=== PATIENT | female | born 1980 | race Caucasian/White ===

== ENCOUNTER → 2021-04-19 10:44 | Outpatient (CLI) | payer BC, SELFPAY ==
--- NOTE | ~2021-04-19 | US_ITS ---
EXAMINATION: US transvaginal DATE: 04/19/2021 11:06 INDICATION: Displacement of intrauterine contraceptive device TECHNIQUE: Multiple endovaginal sonographic images of the pelvis were obtained. COMPARISON: None. FINDINGS: The uterus measures 7.4 x 3.4 x 4.1 cm. The endometrial complex measures 5 mm. An IUD is se en in in expected position. The right ovary measures 2.9 x 2.4 x 3.6 cm. The left ovary measures 3.5 x 1.9 x 3.8 cm and contains a a 3.2 cm simple cyst. There is normal vascular flow in the ovaries. The re is no free fluid in the pelvis. IMPRESSION: 1. IUD in expected position. Reviewed, dictated and finalized at location F. [employer]
== END ==
PROVIDERS: Visit Provider Nurse Practitioner
DX: T83.32XA Displacement of intrauterine contraceptive device, initial encounter (principal); N83.202 Unspecified ovarian cyst, left side
CPT/HCPCS: 76830

== ENCOUNTER 2023-09-02 15:02 | Outpatient (CLI) | payer OTHER, SELFPAY ==
--- NOTE | ~2023-09-02 | US_ITS ---
Pelvic ultrasound. Clinical History: Pelvic pain Technique: Realtime transabdominal and transvaginal scanning of the pelvis was performed. Color flow Doppler and Doppler spectral analysis were performed. Findings: The uterus is anteverted. The endometrial stripe has a thickness of 3 mm. No focal mass is identified. The right ovary measures 2.9 x 2.9 x 1.4 cm. No significant right ovarian or adnexal mass is seen. The left ovary measures 5.4 x 4.9 x 4.3 cm. Mildly complex left ovarian cyst measures 3.[address] There is no evidence of free fluid in the cul de sac. Impression: 3.6 cm mildly complex left ovarian cyst, probably most likely an evolving hemorrhagic cyst. Reviewed, dictated and finalized at [facility]. Impression: 3.6 cm mildly complex left ovarian cyst, probably most likely an evolving hemor rhagic cyst.
== END 2023-09-02 15:03 ==
PROVIDERS: PCP Nurse Practitioner Women's Health; Visit Provider Nurse Practitioner Women's Health
DX: N83.292 Other ovarian cyst, left side (principal)
CPT/HCPCS: 76856

== ENCOUNTER 2023-10-14 09:32 | Outpatient (CLI) | payer OTHER, SELFPAY ==
--- NOTE | ~2023-10-14 | US_ITS ---
EXAMINATION: US pelvic complete INDICATION: Pelvic pain Comparison:Ultrasound dated 09/02/2023 TECHNIQUE: Multiple transabdominal sonographic images of the pelvis performed. FINDINGS: The uterus measures 8.1 x 2.9 x 5.2 cm. There is an IUD present in the endometrium. The end ometrial complex measures 3 mm. The right ovary measures 2.6 x 2.8 x 2.3 cm and the left ovary measures 3.1 x 1.6 x 2.6 cm. Interval resolution of left ovarian cyst. There are small follicles in each ovary. Normal doppler signal in travis th ovaries. There is no free fluid in the pelvis. There are no abnormal masses seen on either side. IMPRESSION: 1. Unremarkable pelvic ultrasound. Reviewed, dictated and finalized at location B.
== END 2023-10-14 09:33 ==
LOC: MICIMG 09:33
PROVIDERS: PCP Obstetrics & Gynecology Gynecology; Visit Provider Obstetrics & Gynecology Gynecology
DX: R10.2 Pelvic and perineal pain (principal)
CPT/HCPCS: 76856